=== PATIENT | female | born 1970 | race Caucasian/White ===

== ENCOUNTER 2020-06-27 08:10 | Day surgery (SDC) | payer OTHER ==
[~2020-06-27] VITALS: Ht 172.7 cm; Wt 122.5 kg
--- NOTE | ~2020-06-27 | OR ---
[facility] [address] [place], [place] [address] Draft DATE OF OPERATION: 06/27/2020 SURGEON: Daryl Coe DPM PREOPERATIVE DIAGNOSIS: Retrocalcaneal heel spur, right foot. POSTOPERATIVE DIAGNOSIS: Retrocalcaneal heel spur, right foot. PROCEDURE: Partial calcaneal osteotomy to resect calcaneal spur, right foot. WASH BOX OPERATOR: Dr. Flo Evans. NURSE TRANSFORMER ASSEMBLY SUPERVISOR: Francisco Anthony. ANESTHESIA: Regional popliteal block with general anesthesia. HEMOSTASIS: Thigh tourniquet at 250 mmHg. ESTIMATED BLOOD LOSS: Less than 5 mL or minimal. MATERIALS UTILIZED: Bone wax, 3-0 Vicryl, 4-0 Vicryl, 5-0 nylon, and a knotless bone anchor from [employer] along with 2-0 FiberWire. PROCEDURE IN DETAIL: The patient was brought into the operating room, and placed on the operating table in the prone position. Popliteal block had been performed previously. Right foot was then scrubbed, prepped, and draped in usual sterile technique. Esmarch bandage was then utilized to exsanguinate the patient's right lower extremity and the pneumatic thigh tourniquet inflate to 250 mmHg. Attention was then directed to the posterior aspect of the patient's right calcaneus, where approximately a 6 cm semi-curved incision over the midline of the distal Achilles tendon and the posterior calcaneus was performed. PATIENT NAME: GENE TOMLIN GIOVANI OPERATIVE REPORT DATE OF : 66 REPORT #: [id number] PHYSICIAN: DARYL COE DPM PCP: TITO HURTADO REPORT IS CONFIDENTIAL AND NOT TO BE RELEASED WITHOUT AUTHORIZATION [facility] [address] [place], [place] [address] Draft Incision was then deepened through the subcutaneous tissue. All bleeders were cauterized and ligated as necessarily. Careful dissection with #64 blade continued down the level of the paratenon, at this time, #64 blade was utilized to divide the distal Achilles tendon as it approached the calcaneus. An incision was performed in midline through and through full-thickness. This was extended down as of yet to the attachment level in the mid calcaneus. was performed in the periosteal covering and the soft tissue covering of the fascia and the fascia itself. The Achilles tendon was reflected medial and lateral from the midpoint of the posterior calcaneus. As the Achilles tendon was being reflected laterally, a very prominent bone spur formation was discovered. This extended up into the Achilles tendon fibers itself. Careful dissection around the exostosis was performed with #64 blade. A sagittal saw was then utilized to dissect the bony prominence, that was primarily located on again the posterolateral aspect of the calcaneus just off midline. Bony ridge from this appeared to extend more superiorly to the bursal projection area. Sagittal saw was utilized to resect a good portion of the bursal projection on the posterosuperior aspect of the calcaneus. The area was also smooth. Bursa was observed anterior to the Achilles tendon and between it in the posterosuperior calcaneus. Not a lot of information was noted with the bursa in this area, but a good portion of the bursa was also removed at this time. The area was flushed with copious amounts of sterile normal saline. Bone wax applied of the area at the bursal projection was resected on the most superior aspect of the calcaneus. This is an area that is mostly superior to the attachment point of the Achilles tendon. The Achilles tendon was lightly reapproximated utilizing 3-0 Vicryl in a taay-ls-eebr stitch fashion to loosely reapproximate the tendon. The FiberWire was then woven starting distally on the medial aspect. It was woven back and forth up to the dissection point of the Achilles tendon and then woven back down to exit out medially in a marek cross pattern to provide riding instructor as tension was applied to its strands. Next, a in depth hole for the anchor. Bone anchor was introduced and tapped into place into the calcaneal body. The suture from the 2-0 FiberWire was run through this bone anchor utilizing the knotless system. Good tension was able to be applied to the Achilles tendon and good reapproximation of the Achilles tendon down to the posterior calcaneus was observed. 3-0 Vicryl was then utilized to reconstruct the paratenon and also reapproximate the other fragmented portions of the Achilles tendon near the insertion area. 4-01 Vicryl was then utilized to reapproximate and coapt the subcutaneous tissue and 5-0 nylon in the continuous interlocking suture technique was utilized to reapproximate and coapt the integument. A silver Acticoat dressing was then applied, light foam dressing, followed by fluff, gauze, and Coban. Thr thigh tourniquet was released. Prompt hyperemic response was noted to all digits of the patient's right foot. The patient was then transferred back to her [place] with vital signs stable and then transported back to the recovery room area. Capped refill time less than 3 seconds to all digits and vital signs being stable, and following a period of postoperative monitoring, the patient was discharged to home with both written and oral instructions. PATIENT NAME: GENE TOMLIN OPERATIVE REPORT DATE OF : 66 REPORT #: [id number] PHYSICIAN: DARYL COE DPM PCP: TITO HURTADO REPORT IS CONFIDENTIAL AND NOT TO BE RELEASED WITHOUT AUTHORIZATION [address] [address] Draft TATA Hilliard/MESHA /[id number] Copies: ~ PATIENT NAME: GENE TOMLIN OPERATIVE REPORT DATE OF : 66 REPORT #: [id number] PHYSICIAN: DARYL COE DPM PCP: TITO HURTADO REPORT IS CONFIDENTIAL AND NOT TO BE RELEASED WITHOUT AUTHORIZATION
[~2020-06-27 08:10] MED LIST: ALBUTEROL SULF8.5 GM INH; ASPIRIN81 MG PO; HYDROCHLOROTHIA25 MG PO; KEFLEX500 MG PO; LEVAQUIN500 MG PO; LISINOPRIL5 MG PO; LORAZEPAM1 MG PO; MAG-OXIDE400 MG PO; METOPROLOL SUCC50 MG PO; PAROXETINE HCL20 MG PO; PREDNISONE10 MG PO; PROAIR HFA8.5 GM INH; PROMETHAZINE HC25 M1 PO; SPIRIVA18 MCG INH; TOPROL XL100 MG PO; ULTRAM50 MG PO; ZESTRIL5 MG PO
[2020-06-27] MEDS ORDERED: BUPROPION XL450 MG PO (08:23)
[2020-06-27] MEDS ORDERED: LIPITOR40 MG PO (08:23)
[2020-06-27] MEDS ORDERED: BISOPROLOL FUMA10 MG PO (08:24)
[2020-06-27] MEDS ORDERED: DESVENLAFAXINE50 MG PO (08:24)
[2020-06-27] MEDS ORDERED: FENOFIBRATE160 MG PO (08:25)
[2020-06-27] MEDS ORDERED: COZAAR100 MG PO (08:25)
[2020-06-27] MEDS ORDERED: HYDROCHLOROTHIA25 MG PO (08:26)
[2020-06-27] MEDS ORDERED: CLARITIN10 M2 PO (08:26)
[2020-06-27] MEDS ORDERED: VITAMIN D21250 MCG PO (08:27)
[2020-06-27] MEDS ORDERED: AMLODIPINE BES2.5 MG PO (08:27)
[2020-06-27] MEDS ORDERED: VITAMIN C500 M1 PO (08:28)
--- NOTE | 2020-06-27 12:38 | NUR ---
06/27/20 1238 Samina,Sadia 1208 PT ARRIVED TO PACU ON 10L ON MASK, RESP EVEN AND UNLABORED. PT REACTIVE TO TACTILE STIMULI, VSS. PT SITTING IN HIGH FOWLERS. 1210 PT ENCOURGED TO COUGH AND ABLE TO DO SO AND ENCOURAGED TO DEEP BREATHE. 1215 X-RAY AT BEDSIDE. 1220 O2 REMOVED. PT REPORTS PAIN IN HEEL 7/10 PAIN. 1229 PAIN MEDICATION GIVEN. 1235 O2 SAT DECREASED TO 88%, PT ENCOURGED TO DEEP BREATHE AND COUGH AND EDUCATION GIVEN ON PAIN MEDICAITON AND BREATHING. 2L NC PLACED.
--- NOTE | 2020-06-27 13:02 | NUR ---
PT IS BACK TO DS FROM PACU. FAMILY IS AT THE BEDSIDE. CALL LIGHT WITHIN REACH. WATER ON BEDSIDE TABLE. NO ADDITIONAL NEEDS.
--- NOTE | 2020-06-27 14:02 | NUR ---
PATIENT EATS PUDDING AND TOLERATES THAT WELL. HER FAMILY IS WITH HER AT THE BEDSIDE. OXYGEN IS TURNED OFF PRIOR TO VITALS BEING TAKEN. PATIENT MAINTAINS OXYGEN SATURATION OF 95% ON RA.
--- NOTE | 2020-06-27 14:27 | NUR ---
BENJAMIN 1415: PATIENT REPORTS "I'M READY TO GO HOME. I'M FEELING PRETTY GOOD." DISCHARGE INSTRUCTIONS ARE GIVEN TO PATIENT IN THE PRESENCE OF HER DAUGHTER AND BOTH VERBALIZE UNDERSTANDING AND PATIENT REPORTS SHE IS GOING TO STAY WITH HER DAUGHTER IN [place] FOR A FEW DAYS. PATIENT DRESSES HERSELF IN THE PRESENCE OF HER DAUGHTER AND TRANSFERS TO THE WHEELCHAIR AND THEN TO THE PERSONAL VEHICLE AND SHE TOLERATES THAT WELL. PATIENT SENT WITH ICE PACK.
--- NOTE | 2020-06-29 16:52 | PATH ---
[facility] [address] [place], [place] [address] Signed SPECIMEN(S): A RIGHT CALCANEUS SPECIMEN SOURCE: A. RIGHT CALCANEUS CLINICAL HISTORY: Right calcaneal spur. Resection right calcaneal spur/partial osteotomy. FINAL PATHOLOGIC DIAGNOSIS: Bone, right calcaneus, excision: - Fragments of benign bone and soft tissue with no significant pathologic changes. BRP:em:[id number] MICROSCOPIC EXAMINATION: Histologic sections of all submitted blocks are examined by light microscopy. These findings, together with the gross examination, support the pathologic diagnosis. GROSS DESCRIPTION: The specimen, labeled "LC," and designated on the requisition "calcaneal osteophyte, right calcaneal spur," is received in formalin and consists of an irregular piece of bone (1.9 x 1.5 x 0.5 cm). The specimen is submitted entirely in cassette (A1) following decalcification in Decal Stat. AC (under the direct supervision of a pathologist) The Gross Description was prepared using a voice recognition system. The report was reviewed for accuracy; however, sound-alike word errors, addition and/or deletions may occur. If there is any question about this report, please contact Client Services. PERFORMING LABORATORY: The technical component was performed by [facility], [address] [place] [id number] (Wallpaper Inspector: Siri Michele MD; CLIA# [id number]). Professional interpretation was performed by [facility], [facility], [address] [address] (CLIA# [id number]). Diagnostician: Ronald Davidson MD Pathologist Electronically Signed 06/29/2020 PATIENT NAME: GENE TOMLIN PATHOLOGY DATE OF : 66 REPORT #: [id number] PHYSICIAN: [facility] PCP: TITO HURTADO REPORT IS CONFIDENTIAL AND NOT TO BE RELEASED WITHOUT AUTHORIZATION [address] [address] Signed Copies: ~ PATIENT NAME: GENE TOMLIN PATHOLOGY DATE OF : 66 REPORT #: [id number] PHYSICIAN: [facility] PCP: TITO HURTADO REPORT IS CONFIDENTIAL AND NOT TO BE RELEASED WITHOUT AUTHORIZATION
== END 2020-06-27 14:15 | disposition home or self-care (01) ==
LOC: OPS 08:10 → DS 08:10 → OPS 08:30
PROVIDERS: ATTEND Podiatrist Foot & Ankle Surgery
PROC: 0QBL0ZZ Excision of Right Tarsal, Open Approach (ICD-10-PCS; principal; 2020-06-27 08:30)
DX: M77.31 Calcaneal spur, right foot (principal); I11.0 Hypertensive heart disease with heart failure; I50.9 Heart failure, unspecified; G47.33 Obstructive sleep apnea (adult) (pediatric); E66.01 Morbid (severe) obesity due to excess calories; Z79.899 Other long term (current) drug therapy; Z68.41 Body mass index [BMI] 40.0-44.9, adult
CPT/HCPCS: 01480; 64445; 64447; 73630; 76942; C1713; J0330; J0690; J0735; J1100; J1885; J2001; J2250; J2405; J2704; J2765; J2795; J3010; J7121